=== PATIENT | female | born 2000 | race Caucasian/White ===

== ENCOUNTER 2020-08-19 16:58 | Emergency (ER) | payer MEDICAID ==
[2020-08-19] MEDS ORDERED: valACYclovir 1,000 MG Tab PO STA (17:50)
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
== END 2020-08-19 18:04 | disposition home or self-care (01) ==
LOC: JP.ED 16:58
DX: A60.09 Herpesviral infection of other urogenital tract (principal); Z72.0 Tobacco use; Z79.899 Other long term (current) drug therapy; Z88.8 Allergy status to other drugs, medicaments and biological substances
CPT/HCPCS: 99282; A9270

== ENCOUNTER 2024-07-28 00:25 | Emergency (ER) | payer MEDICAID ==
[2024-07-28] MEDS: Ondansetron 4 MG Tab.DIS PO ONE (01:42)
[2024-07-28 01:50] LABS: BASOPHILS ABSOLUTE AUTO 0.09 K/uL (0.00-0.10); EOSINOPHILS ABSOLUTE AUTO 0.19 K/uL (0.00-0.40); EOSINOPHILS PERCENT AUTO 2.1 % (0.0-5.4); HEMATOCRIT 39.8 % (34.3-46.0); HEMOGLOBIN 13.1 g/dL (11.2-15.5); IMMATURE GRAN PERCENT AUTO 0.2 % (0.0-0.7); LYMPHOCYTES ABSOLUTE AUTO 2.48 K/uL (0.8-3.3); MEAN CORPUSCULAR HEMOGLOBIN 26.2 pg (31.6-35.5); MEAN CORPUSCULAR HGB CONC 32.9 g/dL (31.6-35.5); MEAN CORPUSCULAR VOLUME 79.6 fL (81.4-99.0); MONOCYTES ABSOLUTE AUTO 0.62 K/uL (0.20-0.90); NEUTROPHILS ABSOLUTE AUTO 5.46 K/uL (1.0-7.6); NEUTROPHILS PERCENT AUTO 61.7 % (40.0-78.1); PLATELET COUNT,PLT 297 K/uL (130-375); WHITE BLOOD CELL COUNT,WBC 8.9 K/uL (3.2-11.0)
[2024-07-28 01:54] LABS: IMMATURE GRAN ABSOLUTE AUTO 0.02 K/uL (0.00-0.23)
[2024-07-28 02:04] LABS: APPEARANCE,URINE CLEAR (CLEAR); BILIRUBIN,URINE NEGATIVE (NEGATIVE); COLOR,URINE YELLOW (YELLOW); GLUCOSE,URINE NEGATIVE (NEGATIVE); KETONES,URINE NEGATIVE (NEGATIVE); LEUKOCYTE ESTERASE,URINE NEGATIVE (NEGATIVE); NITRITE,URINE NEGATIVE (NEGATIVE); OCCULT BLOOD,URINE TRACE-INTACT (NEGATIVE); PH,URINE 5.5 (5.0-8.0); PROTEIN,URINE NEGATIVE (NEGATIVE); UROBILINOGEN,URINE 0.2 EU/dL (0.2-1.0)
[2024-07-28 02:08] LABS: ANION GAP 14.6 mmol/L (5.0-14.0); BLOOD UREA NITROGEN,BUN 10 mg/dL (7-18); CALCIUM 9.7 mg/dL (8.5-10.1); CARBON DIOXIDE,CO2 24 mmol/L (21-32); CHLORIDE,CL 101 mmol/L (100-108); CREATININE 0.8 mg/dL (0.6-1.0); ESTIMATED GFR 105 mL/min (>60); GLUCOSE RANDOM 100 mg/dL (74-106); INR 1.1; POTASSIUM,K 3.8 mmol/L (3.6-5.2); PROTHROMBIN TIME 10.9 sec (9.2-10.6); SODIUM,NA 140 mmol/L (140-148)
[2024-07-28 02:16] LABS: AMORPHOUS SEDIMENT,URINE NOT SEEN; BACTERIA,URINE RARE; EPITHELIAL CELLS,URINE RARE; MUCUS,URINE NOT SEEN; RBC,URINE 0-5 (0-5); WBC,URINE 0-5 (0-5)
[2024-07-28] MEDS: droPERidol 5 MG/2 ML SDV IM ONE (02:40)
[2024-07-28] MEDS: Sodium Chloride 0.9% 10 ML Syringe FLUSH PRN (04:08)
[2024-07-28] MEDS: Sodium Chloride 0.9% 100 ML IV SCH (04:08)
[2024-07-28] MEDS: Iopamidol 755 Mg/ML 100 ML Bottle IV SCH (04:08)
[2024-07-28] MEDS: Ketorolac 15 MG/ML SDV IVPUSH ONE (04:33)
== END 2024-07-28 08:53 | disposition home or self-care (01) ==
LOC: JP.ED 00:25
DX: O72.2 Delayed and secondary postpartum hemorrhage (principal); Z88.8 Allergy status to other drugs, medicaments and biological substances; Z79.899 Other long term (current) drug therapy
CPT/HCPCS: 36415; 71275; 74177; 76817; 80048; 81001; 84703; 85025; 85379; 85610; 87210; 93005; 93010; 96372; 96374; 99283; 99284-25; J1790; J1885; Q0162; Q9967

== ENCOUNTER 2024-12-23 22:36 | Emergency (ER) | payer MEDICAID ==
[2024-12-23 23:20] LABS: APPEARANCE,URINE CLEAR (CLEAR); GLUCOSE,URINE NEGATIVE (NEGATIVE); OCCULT BLOOD,URINE NEGATIVE (NEGATIVE)
[2024-12-23 23:24] LABS: SQUAMOUS EPITHELIAL CELLS,UR RARE /HPF; UROTHELIAL CELLS,URINE NOT SEEN /HPF
[2024-12-23] MEDS ORDERED: Naloxone 0.4 MG/ML SDV IVPUSH PRN (23:36)
[2024-12-24] MEDS: Ondansetron 4 MG Tab.DIS PO ONE (00:19)
== END 2024-12-24 01:11 | disposition home or self-care (01) ==
LOC: JP.ED 22:36
DX: N89.8 Other specified noninflammatory disorders of vagina (principal); F17.210 Nicotine dependence, cigarettes, uncomplicated; Z88.8 Allergy status to other drugs, medicaments and biological substances; Z79.899 Other long term (current) drug therapy
CPT/HCPCS: 81001; 81025; 87210; 96372; 99284; Q0162; 99283; J1171

== ENCOUNTER 2025-01-27 02:27 | Emergency (ER) | payer MEDICAID ==
[2025-01-27] MEDS: Ondansetron 4 MG/2 ML SDV IVPUSH ONE (03:29)
[2025-01-27 04:24] LABS: APPEARANCE,URINE SLIGHTLY CLOUDY (CLEAR); GLUCOSE,URINE NEGATIVE (NEGATIVE); OCCULT BLOOD,URINE NEGATIVE (NEGATIVE)
[2025-01-27 04:40] LABS: SQUAMOUS EPITHELIAL CELLS,UR MANY /HPF; UROTHELIAL CELLS,URINE NOT SEEN /HPF
[2025-01-27] MEDS: Alum Hydrox/Mag Hydrox/Simeth 15 ML, Lidocaine 2% 15 ML PO ONE (05:39)
== END 2025-01-27 06:45 | disposition home or self-care (01) ==
LOC: JP.ED 02:27
DX: O99.281 Endocrine, nutritional and metabolic diseases complicating pregnancy, first trimester (principal); E86.0 Dehydration; O98.511 Other viral diseases complicating pregnancy, first trimester; B34.9 Viral infection, unspecified; Z3A.01 Less than 8 weeks gestation of pregnancy; Z88.8 Allergy status to other drugs, medicaments and biological substances
CPT/HCPCS: 76801; 81001; 96361; 96374; 99284; A9270; J2405; J3490; J7030